=== PATIENT | female | born 1990 | race African-American/Black ===

== ENCOUNTER 2018-12-01 16:34 | Emergency (ER) | payer MEDICAID ==
[~2018-12-01] VITALS: Ht 170.2 cm; Wt 57.0 kg
[2018-12-01 23:01] LABS: BASOPHILS % 0.7 % (0.0-2.0); EOSINOPHILS % 0.9 % (0.0-5.0); HEMATOCRIT. 39.1 % (36.0-48.0); HEMOGLOBIN. 13.1 g/dL (12.0-16.0); LYMPHOCYTES % 19.1 % (20.0-50.0); MEAN CORPUSCULAR HEMOGLOBIN 30.3 pg (28.0-32.0); MEAN CORPUSCULAR VOLUME 90.5 fL (81.0-99.0); MEAN PLATELET VOLUME 8.7 fl (7.4-10.4); MONOCYTES % 12.8 % (2.0-8.0); NEUTROPHILS % 66.5 % (40.0-76.0); PLATELET 212 x1000/uL (130-400); RED BLOOD CELL COUNT 4.32 mill/uL (4.2-5.4); RED CELL DISTRIBUTION WIDTH 13.5 % (11.6-14.6)
[2018-12-01 23:03] LABS: CHLORIDE 103 mEq/L (98-107)
[2018-12-01 23:14] LABS: B-HCG QUANTITATIVE 9 mIU/mL (<3)
[2018-12-02 01:35] VITALS: BP 112/60
== END 2018-12-02 02:06 | disposition home or self-care (01) ==
LOC: ER 16:34
DX: O03.4 Incomplete spontaneous abortion without complication (principal); F12.10 Cannabis abuse, uncomplicated; Z3A.00 Weeks of gestation of pregnancy not specified
CPT/HCPCS: 36415; 76830; 76856; 81025; 84702; 86850; 86900; 99284